=== PATIENT | female | born 1990 | race Caucasian/White ===

== ENCOUNTER 2017-12-01 07:09 | Emergency (ER) | payer MEDICAID ==
[~2017-12-01] VITALS: Ht 160 cm; Wt 72.7 kg
[~2017-12-01 07:09] MED LIST: CYCL-394 PO; MECL-111 PO; prenatal vitamins
[2017-12-01 07:15] VITALS: BP 124/68
[2017-12-01] MEDS ORDERED: DICL50TA8 PO (07:26)
[2017-12-01] MEDS ORDERED: CYCL-1 PO (07:26)
[2017-12-01] MEDS ORDERED: ketorolac trometh inj. 60 MG/2 ML VIAL IM ONE (07:30)
== END 2017-12-01 07:49 | disposition home or self-care (01) ==
LOC: ER 07:09
DX: M54.5 Low back pain (principal); G89.29 Other chronic pain; G43.909 Migraine, unspecified, not intractable, without status migrainosus; Z88.5 Allergy status to narcotic agent; Z88.8 Allergy status to other drugs, medicaments and biological substances; Z79.899 Other long term (current) drug therapy
CPT/HCPCS: 96372; 99283; J1885

== ENCOUNTER 2018-03-15 12:53 | Emergency (ER) | payer MEDICAID, OTHER ==
[~2018-03-15] VITALS: Ht 160 cm; Wt 75.0 kg
[~2018-03-15 12:53] MED LIST changes: +CYCL-1 PO; +DICL50TA8 PO
[2018-03-15 13:07] VITALS: BP 131/78
[2018-03-15] MEDS ORDERED: METH500T PO (13:25)
[2018-03-15] MEDS ORDERED: HYDR-568 PO (13:25)
[2018-03-15] MEDS ORDERED: ketorolac trometh inj. 60 MG/2 ML VIAL IM ONE (13:25)
== END 2018-03-15 13:45 | disposition home or self-care (01) ==
LOC: ER 12:53
DX: M54.42 Lumbago with sciatica, left side (principal); M62.830 Muscle spasm of back; G89.29 Other chronic pain; G43.909 Migraine, unspecified, not intractable, without status migrainosus; Z98.890 Other specified postprocedural states; Z88.6 Allergy status to analgesic agent
CPT/HCPCS: 96372; 99283; J1885

== ENCOUNTER 2018-05-19 12:51 | Emergency (ER) | payer OTHER ==
[~2018-05-19] VITALS: Ht 160 cm; Wt 70.8 kg
[~2018-05-19 12:51] MED LIST changes: +METH500T PO
[2018-05-19 13:11] VITALS: BP 122/77
[2018-05-19 13:44] LABS: ALANINE AMINOTRANSFERASE 19 U/L (12-78); ALBUMIN 3.9 G/DL (3.4-5.0); ALKALINE PHOSPHATASE 56 IU/L (46-116); ANION GAP 9 (8-16); ASPARTATE AMINO TRANSFERASE 11 U/L (10-37); BILIRUBIN,TOTAL 0.3 MG/DL (0.1-1.0); BLOOD UREA NITROGEN 15 MG/DL (7-18); BUN/CREATININE RATIO 17.9 (6.6-38.0); CHLORIDE 106 MMOL/L (99-107); CREATININE 0.84 MG/DL (0.40-0.90); GLUCOSE 83 MG/DL (70-104); POTASSIUM 3.6 MMOL/L (3.5-5.1); SODIUM 139 MMOL/L (135-145); TOTAL CARBON DIOXIDE 23.7 MMOL/L (24-32); TOTAL PROTEIN 7.7 G/DL (6.4-8.2); eGFR 81 ML/MIN
[2018-05-19 13:45] LABS: PROTHROMBIN TIME 10.3 SECONDS (9.0-12.0)
[2018-05-19 13:45] LABS: CLARITY,URINE SLIGHTLY CLOUDY (Clear); COLOR,URINE YELLOW (Yellow); GLUCOSE, URINE NEGATIVE (Neg); KETONES,URINE NEGATIVE (Neg); LEUKOCYTE ESTERASE ,URINE SMALL (Neg); NITRITES, URINE NEGATIVE (Neg); OCCULT BLOOD,URINE NEGATIVE (Neg); PH,URINE 5.5 (4.8-8.0); PROTEIN,URINE NEGATIVE (Neg); UROBILINOGEN,URINE 0.2 E.U/dL (0.2-1.0)
[2018-05-19 13:46] LABS: URINE HCG NEGATIVE (NEG)
[2018-05-19 13:48] LABS: BASOPHILS % (AUTO) 0.5 % (0-1); EOSINOPHILS % (AUTO) 0.5 % (0-6); HEMATOCRIT 41.8 % (35.0-45.0); HEMOGLOBIN 13.9 g/dl (12.0-16.0); LYMPHOCYTES # (AUTO) 1.8 X10'3 (1.1-4.8); LYMPHOCYTES % (AUTO) 23.9 % (21-51); MEAN CORPUSCULAR HEMOGLOBIN 30.4 PG (27.0-31.0); MEAN CORPUSCULAR HGB CONC 33.3 % (33.0-36.5); MEAN CORPUSCULAR VOLUME 91.4 FL (78-98); MEAN PLATELET VOLUME 9.6 FL (7.4-10.4); MONOCYTES # (AUTO) 0.5 X10'3 (0-0.9); MONOCYTES % (AUTO) 6.3 % (2-12); NEUTROPHILS # (AUTO) 5.3 X10'3 (1.8-7.7); NEUTROPHILS % (AUTO) 68.8 % (42-75); PLATELET COUNT 236 X10'3 (140-440); RED BLOOD COUNT 4.57 X10'6 (4.20-5.60); RED CELL DISTRIBUTION WIDTH 12.4 % (11.5-14.5); WHITE BLOOD COUNT 7.7 X10'3 (4.5-11.0)
[2018-05-19 13:52] LABS: UA COLLECTION TYPE CLN CATCH MIDSTREAM
[2018-05-19 13:54] LABS: BACTERIA,URINE 2+ /HPF (Neg); RBC,URINE 0-2 /HPF (0-2); SQUAMOUS EPITHELIAL CELL,UR MODERATE /LPF (FEW)
[2018-05-19] MEDS ORDERED: ondansetron 4mg rapidly disintigrating tab PO ONE (14:40)
[2018-05-19] MEDS ORDERED: famotidine 20mg tablet PO ONE (14:45)
[2018-05-19] MEDS ORDERED: BISA-155 PO (15:29)
== END 2018-05-19 16:04 | disposition home or self-care (01) ==
LOC: ER 12:51
DX: R10.32 Left lower quadrant pain (principal); G89.29 Other chronic pain; Z98.890 Other specified postprocedural states; Z88.5 Allergy status to narcotic agent; Z88.8 Allergy status to other drugs, medicaments and biological substances; Z79.899 Other long term (current) drug therapy
CPT/HCPCS: 36415; 76856; 80053; 81001; 81025; 85025; 85610; 87088; 99284

== ENCOUNTER 2018-07-15 07:40 | Emergency (ER) | payer MEDICAID ==
[~2018-07-15] VITALS: Ht 160 cm; Wt 72.7 kg
[~2018-07-15 07:40] MED LIST changes: +BISA-155 PO
[2018-07-15 07:58] VITALS: BP 124/79
[2018-07-15] MEDS ORDERED: dexamethasone sod phosphate 10mg/ml inj PO STA (08:25)
== END 2018-07-15 08:47 | disposition home or self-care (01) ==
LOC: ER 07:41
DX: J02.9 Acute pharyngitis, unspecified (principal); G89.29 Other chronic pain; H92.01 Otalgia, right ear; R11.0 Nausea; F17.200 Nicotine dependence, unspecified, uncomplicated; Z88.5 Allergy status to narcotic agent; Z79.899 Other long term (current) drug therapy; Z88.8 Allergy status to other drugs, medicaments and biological substances
CPT/HCPCS: 99282; J1100

== ENCOUNTER 2019-02-17 09:25 | Emergency (ER) | payer MEDICAID, OTHER ==
[~2019-02-17] VITALS: Ht 160 cm; Wt 68.0 kg
[2019-02-17 10:00] LABS: CLARITY,URINE CLOUDY (Clear); COLOR,URINE STRAW (Yellow); GLUCOSE, URINE NEGATIVE (Neg); KETONES,URINE NEGATIVE (Neg); LEUKOCYTE ESTERASE ,URINE LARGE (Neg); NITRITES, URINE NEGATIVE (Neg); OCCULT BLOOD,URINE NEGATIVE (Neg); PH,URINE 5.5 (4.8-8.0); PROTEIN,URINE NEGATIVE (Neg); UROBILINOGEN,URINE 0.2 E.U/dL (0.2-1.0)
[2019-02-17 10:02] LABS: URINE HCG NEGATIVE (NEG)
[2019-02-17 10:04] LABS: UA COLLECTION TYPE CLN CATCH MIDSTREAM
[2019-02-17 10:10] LABS: SQUAMOUS EPITHELIAL CELL,UR MANY /LPF (FEW)
[2019-02-17 10:10] LABS: BASOPHILS % (AUTO) 0.5 % (0-1); EOSINOPHILS % (AUTO) 0.9 % (0-6); HEMATOCRIT 43.6 % (35.0-45.0); LYMPHOCYTES # (AUTO) 1.3 X10'3 (1.1-4.8); LYMPHOCYTES % (AUTO) 23.7 % (21-51); MEAN CORPUSCULAR HEMOGLOBIN 32.1 PG (27.0-31.0); MEAN CORPUSCULAR HGB CONC 34.3 g/dL (33.0-36.5); MEAN CORPUSCULAR VOLUME 93.4 FL (78-98); MEAN PLATELET VOLUME 8.8 FL (7.4-10.4); MONOCYTES # (AUTO) 0.4 X10'3 (0-0.9); MONOCYTES % (AUTO) 7.1 % (2-12); NEUTROPHILS # (AUTO) 3.8 X10'3 (1.8-7.7); NEUTROPHILS % (AUTO) 67.8 % (42-75); PLATELET COUNT 223 X10'3 (140-440); RED BLOOD COUNT 4.66 X10'6 (4.20-5.60); RED CELL DISTRIBUTION WIDTH 12.2 % (11.5-14.5); WHITE BLOOD COUNT 5.7 X10'3 (4.5-11.0)
[2019-02-17 10:11] LABS: BACTERIA,URINE 2+ /HPF (Neg); RBC,URINE 0-2 /HPF (0-2); WBC,URINE 20-30 /HPF (0-4)
[2019-02-17 10:22] LABS: ALANINE AMINOTRANSFERASE 19 U/L (12-78); ALKALINE PHOSPHATASE 51 IU/L (46-116); ANION GAP 6 (8-16); ASPARTATE AMINO TRANSFERASE 8 U/L (10-37); BILIRUBIN,TOTAL 0.5 MG/DL (0.1-1.0); BLOOD UREA NITROGEN 11 MG/DL (7-18); BUN/CREATININE RATIO 14.9 (6.6-38.0); CALCIUM 9.4 MG/DL (8.5-10.1); CHLORIDE 109 MMOL/L (99-107); CREATININE 0.74 MG/DL (0.40-0.90); GLUCOSE 78 MG/DL (70-104); POTASSIUM 3.9 MMOL/L (3.5-5.1); SODIUM 141 MMOL/L (135-145); TOTAL CARBON DIOXIDE 25.8 MMOL/L (24-32); eGFR > 90 ML/MIN
[2019-02-17] MEDS ORDERED: HYDR-4383 PO (11:08)
[2019-02-17 11:24] VITALS: BP 104/64
[2019-02-17] MEDS ORDERED: SULF1TAB49 PO (11:33)
== END 2019-02-17 11:39 | disposition home or self-care (01) ==
LOC: ER 09:26
DX: R10.31 Right lower quadrant pain (principal); G43.909 Migraine, unspecified, not intractable, without status migrainosus; G89.29 Other chronic pain; Z98.890 Other specified postprocedural states; Z88.5 Allergy status to narcotic agent; Z88.6 Allergy status to analgesic agent; Z79.899 Other long term (current) drug therapy
CPT/HCPCS: 36415; 80053; 81001; 81025; 85025; 85610; 99283

== ENCOUNTER 2019-05-02 16:40 | Emergency (ER) | payer OTHER ==
[~2019-05-02] VITALS: Ht 160 cm; Wt 67.0 kg
[~2019-05-02 16:40] MED LIST changes: +HYDR-4383 PO
[2019-05-02 16:42] VITALS: BP 120/80
[2019-05-02] MEDS ORDERED: HYDR-4353 PO (17:09)
== END 2019-05-02 17:18 | disposition home or self-care (01) ==
LOC: ER 16:41
DX: M25.511 Pain in right shoulder (principal); G43.909 Migraine, unspecified, not intractable, without status migrainosus; G89.29 Other chronic pain; Z79.899 Other long term (current) drug therapy; Z88.6 Allergy status to analgesic agent; Z98.890 Other specified postprocedural states; V89.2XXA Person injured in unspecified motor-vehicle accident, traffic, initial encounter; Y93.89 Activity, other specified; Y92.89 Other specified places as the place of occurrence of the external cause; Y99.8 Other external cause status
CPT/HCPCS: 99283

== ENCOUNTER 2019-06-16 08:50 | Emergency (ER) | payer SELFPAY ==
[~2019-06-16] VITALS: Ht 160 cm; Wt 67.9 kg
[2019-06-16 08:51] VITALS: BP 127/78
[2019-06-16] MEDS ORDERED: ondansetron/PF 4mg/2ml inj IV ONE (09:15)
[2019-06-16] MEDS ORDERED: ketorolac tromethamine 15mg/ml inj. IV ONE (09:15)
[2019-06-16 09:41] LABS: BASOPHILS % (AUTO) 0.7 % (0-1); EOSINOPHILS % (AUTO) 0.9 % (0-6); HEMATOCRIT 42.9 % (35.0-45.0); HEMOGLOBIN 14.7 g/dl (12.0-16.0); LYMPHOCYTES # (AUTO) 1.2 X10'3 (1.1-4.8); LYMPHOCYTES % (AUTO) 23.7 % (21-51); MEAN CORPUSCULAR HEMOGLOBIN 32.4 PG (27.0-31.0); MEAN CORPUSCULAR HGB CONC 34.4 g/dL (33.0-36.5); MEAN CORPUSCULAR VOLUME 94.1 FL (78-98); MEAN PLATELET VOLUME 9.4 FL (7.4-10.4); MONOCYTES # (AUTO) 0.3 X10'3 (0-0.9); MONOCYTES % (AUTO) 6.9 % (2-12); NEUTROPHILS # (AUTO) 3.4 X10'3 (1.8-7.7); NEUTROPHILS % (AUTO) 67.8 % (42-75); PLATELET COUNT 204 X10'3 (140-440); RED BLOOD COUNT 4.56 X10'6 (4.20-5.60); RED CELL DISTRIBUTION WIDTH 12.3 % (11.5-14.5)
[2019-06-16 09:43] LABS: URINE HCG NEGATIVE (NEG)
[2019-06-16 09:44] LABS: CLARITY,URINE SLIGHTLY CLOUDY (Clear); COLOR,URINE YELLOW (Yellow); GLUCOSE, URINE NEGATIVE (Neg); KETONES,URINE NEGATIVE (Neg); LEUKOCYTE ESTERASE ,URINE SMALL (Neg); NITRITES, URINE NEGATIVE (Neg); OCCULT BLOOD,URINE NEGATIVE (Neg); PROTEIN,URINE NEGATIVE (Neg)
[2019-06-16 09:46] LABS: UA COLLECTION TYPE VOIDED
[2019-06-16 09:52] LABS: BACTERIA,URINE 2+ /HPF (Neg); MUCUS STRANDS MODERATE /LPF (Neg); RBC,URINE NONE SEEN /HPF (0-2); SQUAMOUS EPITHELIAL CELL,UR MANY /LPF (FEW)
[2019-06-16 10:02] LABS: ALANINE AMINOTRANSFERASE 28 U/L (12-78); ALBUMIN 4.3 G/DL (3.4-5.0); ALBUMIN/GLOBULIN RATIO 1.2 (1.1-1.5); ALKALINE PHOSPHATASE 57 IU/L (46-116); ANION GAP 6 (8-16); ASPARTATE AMINO TRANSFERASE 15 U/L (10-37); BILIRUBIN,TOTAL 0.6 MG/DL (0.1-1.0); BLOOD UREA NITROGEN 15 MG/DL (7-18); BUN/CREATININE RATIO 18.1 (6.6-38.0); CALCIUM 9.4 MG/DL (8.5-10.1); CHLORIDE 108 MMOL/L (99-107); CREATININE 0.83 MG/DL (0.40-0.90); GLUCOSE 91 MG/DL (70-104); SODIUM 142 MMOL/L (135-145); TOTAL CARBON DIOXIDE 27.8 MMOL/L (24-32); TOTAL PROTEIN 7.9 G/DL (6.4-8.2); eGFR 81 ML/MIN
[2019-06-16] MEDS ORDERED: ondansetron 4mg rapidly disintigrating tab PO ONE (10:15)
[2019-06-16] MEDS ORDERED: ketorolac trometh. 30mg/ml inj. IM ONE (10:15)
[2019-06-16] MEDS ORDERED: HYDR-3964 PO (11:05)
== END 2019-06-16 11:18 | disposition home or self-care (01) ==
LOC: ER 08:51
DX: N83.201 Unspecified ovarian cyst, right side (principal); R10.31 Right lower quadrant pain; R42 Dizziness and giddiness; G43.909 Migraine, unspecified, not intractable, without status migrainosus; G89.29 Other chronic pain; Z98.890 Other specified postprocedural states; Z88.5 Allergy status to narcotic agent; Z88.6 Allergy status to analgesic agent; Z79.899 Other long term (current) drug therapy
CPT/HCPCS: 36415; 76705; 76856; 80053; 81001; 81025; 85025; 96372; 99284; J1885

== ENCOUNTER 2019-07-24 08:48 | Emergency (ER) | payer MEDICAID, OTHER ==
[~2019-07-24] VITALS: Ht 160 cm; Wt 65.9 kg
[~2019-07-24 08:48] MED LIST changes: -MECL-111 PO; +MECL-159 PO
[2019-07-24 08:55] VITALS: BP 131/87
[2019-07-24] MEDS ORDERED: ondansetron 4mg rapidly disintigrating tab PO ONE (09:10)
[2019-07-24] MEDS ORDERED: acetaminophen 325mg tablet PO ONE (09:10)
[2019-07-24 09:38] LABS: HEMOGLOBIN 15.9 g/dl (12.0-16.0); MEAN PLATELET VOLUME 9.5 FL (7.4-10.4); RED CELL DISTRIBUTION WIDTH 12.3 % (11.5-14.5); WHITE BLOOD COUNT 5.3 X10'3 (4.5-11.0)
[2019-07-24 09:39] LABS: BASOPHILS % (AUTO) 0.6 % (0-1); EOSINOPHILS # (AUTO) 0.1 X10'3 (0-0.9); LYMPHOCYTES # (AUTO) 1.4 X10'3 (1.1-4.8); LYMPHOCYTES % (AUTO) 26.7 % (21-51); MEAN CORPUSCULAR HEMOGLOBIN 32.4 PG (27.0-31.0); MEAN CORPUSCULAR HGB CONC 34.5 g/dL (33.0-36.5); MEAN CORPUSCULAR VOLUME 93.8 FL (78-98); MONOCYTES # (AUTO) 0.4 X10'3 (0-0.9); MONOCYTES % (AUTO) 6.6 % (2-12); NEUTROPHILS # (AUTO) 3.5 X10'3 (1.8-7.7); NEUTROPHILS % (AUTO) 65.1 % (42-75); PLATELET COUNT 239 X10'3 (140-440); RED BLOOD COUNT 4.91 X10'6 (4.20-5.60)
[2019-07-24 09:40] LABS: ALANINE AMINOTRANSFERASE 20 U/L (12-78); ALBUMIN 4.5 G/DL (3.4-5.0); ALBUMIN/GLOBULIN RATIO 1.1 (1.1-1.5); ALKALINE PHOSPHATASE 60 IU/L (46-116); ANION GAP 7 (8-16); ASPARTATE AMINO TRANSFERASE 17 U/L (10-37); BILIRUBIN,TOTAL 0.6 MG/DL (0.1-1.0); BLOOD UREA NITROGEN 9 MG/DL (7-18); CHLORIDE 107 MMOL/L (99-107); CREATININE 0.75 MG/DL (0.40-0.90); GLUCOSE 96 MG/DL (70-104); LIPASE 193 U/L (73-393); POTASSIUM 3.9 MMOL/L (3.5-5.1); SODIUM 141 MMOL/L (135-145); TOTAL CARBON DIOXIDE 27.2 MMOL/L (24-32); TOTAL PROTEIN 8.7 G/DL (6.4-8.2); eGFR > 90 ML/MIN
--- NOTE | 2019-07-24 09:47 | NUR ---
ADMIN MEDICATION ORDERED. PT GIVEN URINE CUP AND AMB TO BATHROOM TO COLLECT SPECIMEN.
[2019-07-24 10:05] LABS: CLARITY,URINE CLEAR (Clear); COLOR,URINE YELLOW (Yellow); GLUCOSE, URINE NEGATIVE (Neg); KETONES,URINE NEGATIVE (Neg); LEUKOCYTE ESTERASE ,URINE TRACE (Neg); NITRITES, URINE NEGATIVE (Neg); OCCULT BLOOD,URINE NEGATIVE (Neg); PROTEIN,URINE NEGATIVE (Neg); UA COLLECTION TYPE CLN CATCH MIDSTREAM; UROBILINOGEN,URINE 0.2 E.U/dL (0.2-1.0)
[2019-07-24 10:07] LABS: URINE HCG NEGATIVE (NEG)
[2019-07-24 10:21] LABS: SQUAMOUS EPITHELIAL CELL,UR MANY /LPF (FEW)
[2019-07-24 10:23] LABS: BACTERIA,URINE FEW /HPF (Neg); RBC,URINE 0-2 /HPF (0-2); WBC,URINE 0-4 /HPF (0-4)
[2019-07-24] MEDS ORDERED: famotidine 20mg tablet PO ONE (10:25)
[2019-07-24] MEDS ORDERED: HYDR-4383 PO (10:26)
[2019-07-24] MEDS ORDERED: FAMO-128 PO (10:26)
[2019-07-24] MEDS ORDERED: PROC-8 PO (10:26)
== END 2019-07-24 10:36 | disposition home or self-care (01) ==
LOC: ER 08:48
DX: R10.31 Right lower quadrant pain (principal); G43.909 Migraine, unspecified, not intractable, without status migrainosus; G89.29 Other chronic pain; Z88.5 Allergy status to narcotic agent; Z88.8 Allergy status to other drugs, medicaments and biological substances; Z79.899 Other long term (current) drug therapy; Z72.89 Other problems related to lifestyle
CPT/HCPCS: 36415; 80053; 81001; 81025; 83690; 85025; 99283

== ENCOUNTER 2019-08-03 11:57 | Emergency (ER) | payer MEDICAID, OTHER ==
[~2019-08-03] VITALS: Ht 160 cm; Wt 67.7 kg
[~2019-08-03 11:57] MED LIST changes: +FAMO-128 PO; +PROC-8 PO
[2019-08-03 12:06] VITALS: BP 125/85
[2019-08-03] MEDS ORDERED: IBUP-1984 PO (12:34)
[2019-08-03] MEDS ORDERED: PENI250T2 PO (12:34)
== END 2019-08-03 13:04 | disposition home or self-care (01) ==
LOC: ER 11:58
DX: K08.89 Other specified disorders of teeth and supporting structures (principal); G89.29 Other chronic pain; Z98.890 Other specified postprocedural states; Z88.5 Allergy status to narcotic agent; Z88.6 Allergy status to analgesic agent; Z79.899 Other long term (current) drug therapy
CPT/HCPCS: 99283

== ENCOUNTER 2020-02-07 10:11 | Emergency (ER) | payer MEDICAID ==
[~2020-02-07] VITALS: Ht 160 cm; Wt 69.0 kg
[2020-02-07 10:24] VITALS: BP 118/80
[2020-02-07] MEDS ORDERED: PENI500T2 PO (11:27)
== END 2020-02-07 11:35 | disposition home or self-care (01) ==
LOC: ER 10:11
DX: K04.7 Periapical abscess without sinus (principal); R68.84 Jaw pain; G43.909 Migraine, unspecified, not intractable, without status migrainosus; G89.29 Other chronic pain; Z98.890 Other specified postprocedural states; Z72.89 Other problems related to lifestyle; Z88.5 Allergy status to narcotic agent; Z88.6 Allergy status to analgesic agent; Z79.899 Other long term (current) drug therapy; Z79.2 Long term (current) use of antibiotics
CPT/HCPCS: 99283

== ENCOUNTER 2020-03-21 10:50 | Emergency (ER) | payer MEDICAID, OTHER ==
[~2020-03-21] VITALS: Ht 160 cm; Wt 72.7 kg
[2020-03-21 12:53] LABS: BASOPHILS % (AUTO) 0.5 % (0-1); EOSINOPHILS % (AUTO) 0.3 % (0-6); HEMATOCRIT 44.6 % (35.0-45.0); HEMOGLOBIN 15.3 g/dl (12.0-16.0); LYMPHOCYTES # (AUTO) 1.3 X10'3 (1.1-4.8); LYMPHOCYTES % (AUTO) 16.6 % (21-51); MEAN CORPUSCULAR HEMOGLOBIN 32.1 PG (27.0-31.0); MEAN CORPUSCULAR HGB CONC 34.2 g/dL (33.0-36.5); MEAN CORPUSCULAR VOLUME 93.8 FL (78-98); MEAN PLATELET VOLUME 9.7 FL (7.4-10.4); MONOCYTES # (AUTO) 0.4 X10'3 (0-0.9); MONOCYTES % (AUTO) 4.5 % (2-12); NEUTROPHILS # (AUTO) 6.2 X10'3 (1.8-7.7); NEUTROPHILS % (AUTO) 78.1 % (42-75); PLATELET COUNT 256 X10'3 (140-440); RED BLOOD COUNT 4.75 X10'6 (4.20-5.60); RED CELL DISTRIBUTION WIDTH 12.2 % (11.5-14.5); WHITE BLOOD COUNT 7.9 X10'3 (4.5-11.0)
[2020-03-21 13:05] LABS: ALANINE AMINOTRANSFERASE 19 U/L (12-78); ALKALINE PHOSPHATASE 55 IU/L (46-116); ANION GAP 9 (8-16); ASPARTATE AMINO TRANSFERASE 13 U/L (10-37); BILIRUBIN,TOTAL 0.3 MG/DL (0.1-1.0); BLOOD UREA NITROGEN 13 MG/DL (7-18); BUN/CREATININE RATIO 17.6 (6.6-38.0); CALCIUM 9.5 MG/DL (8.5-10.1); CHLORIDE 109 MMOL/L (99-107); CREATININE 0.74 MG/DL (0.40-0.90); GLUCOSE 91 MG/DL (70-104); POTASSIUM 3.8 MMOL/L (3.5-5.1); SODIUM 141 MMOL/L (135-145); TOTAL PROTEIN 8.1 G/DL (6.4-8.2); eGFR > 90 ML/MIN
--- NOTE | 2020-03-21 13:51 | NUR ---
Pt tolerated PO intake of food and drink. Pt is awaiting discarge paperwork and her spouse will be driving her home.
[2020-03-21 13:58] VITALS: BP 104/60
== END 2020-03-21 14:00 | disposition home or self-care (01) ==
LOC: ER 10:51
DX: R55 Syncope and collapse (principal); R05 Cough; R53.1 Weakness; R50.9 Fever, unspecified; G43.909 Migraine, unspecified, not intractable, without status migrainosus; G89.29 Other chronic pain; F17.200 Nicotine dependence, unspecified, uncomplicated; Z98.890 Other specified postprocedural states; Z72.89 Other problems related to lifestyle; Z88.5 Allergy status to narcotic agent; Z79.899 Other long term (current) drug therapy
CPT/HCPCS: 36415; 80053; 85025; 93005; 99284

== ENCOUNTER 2021-01-08 09:40 | Emergency (ER) | payer SELFPAY | END 2021-01-08 17:55 | disposition left against medical advice (07) | LOC: ER 09:41 | DX: R68.84 Jaw pain (principal); Z53.21 Procedure and treatment not carried out due to patient leaving prior to being seen by health care provider ==

== ENCOUNTER 2022-01-11 12:44 | Emergency (ER) | payer SELFPAY ==
[~2022-01-11] VITALS: Ht 160 cm; Wt 72.3 kg
[2022-01-11 12:58] VITALS: BP 135/87
[2022-01-11] MEDS ORDERED: proparacaine 0.5% ophthalmic drops 15ml EACHEYE ONE (13:20)
== END 2022-01-11 14:17 | disposition home or self-care (01) ==
LOC: ER 12:45
DX: H57.11 Ocular pain, right eye (principal); G43.909 Migraine, unspecified, not intractable, without status migrainosus; G89.29 Other chronic pain; M54.50 Low back pain, unspecified; Z88.5 Allergy status to narcotic agent; Z88.6 Allergy status to analgesic agent; Z98.890 Other specified postprocedural states
CPT/HCPCS: 99282

== ENCOUNTER 2022-07-06 14:01 | Emergency (ER) | payer BC ==
[~2022-07-06] VITALS: Ht 160 cm; Wt 72.0 kg
[2022-07-06 14:29] LABS: BASOPHILS % (AUTO) 0.5 % (0-1); EOSINOPHILS % (AUTO) 0.4 % (0-6); HEMATOCRIT 41.9 % (35.0-45.0); HEMOGLOBIN 14.1 g/dl (12.0-16.0); LYMPHOCYTES # (AUTO) 2.2 X10'3 (1.1-4.8); LYMPHOCYTES % (AUTO) 28.6 % (21-51); MEAN CORPUSCULAR HEMOGLOBIN 31.4 PG (27.0-31.0); MEAN CORPUSCULAR HGB CONC 33.6 g/dL (33.0-36.5); MEAN CORPUSCULAR VOLUME 93.6 FL (78-98); MONOCYTES # (AUTO) 0.6 X10'3 (0-0.9); MONOCYTES % (AUTO) 7.4 % (2-12); NEUTROPHILS # (AUTO) 4.8 X10'3 (1.8-7.7); NEUTROPHILS % (AUTO) 63.1 % (42-75); PLATELET COUNT 243 X10'3 (140-440); RED BLOOD COUNT 4.48 X10'6 (4.20-5.60); RED CELL DISTRIBUTION WIDTH 12.2 % (11.5-14.5); WHITE BLOOD COUNT 7.7 X10'3 (4.5-11.0)
[2022-07-06 14:42] LABS: ALANINE AMINOTRANSFERASE 20 U/L (12-78); ALBUMIN 4.3 G/DL (3.4-5.0); ALBUMIN/GLOBULIN RATIO 1.1 (1.1-1.5); ALKALINE PHOSPHATASE 56 IU/L (46-116); ANION GAP 6 (8-16); ASPARTATE AMINO TRANSFERASE 21 U/L (10-37); BILIRUBIN,TOTAL 0.5 MG/DL (0.1-1.0); BLOOD UREA NITROGEN 14 MG/DL (7-18); BUN/CREATININE RATIO 15.7 (6.6-38.0); CALCIUM 9.2 MG/DL (8.5-10.1); CHLORIDE 103 MMOL/L (99-107); CREATININE 0.89 MG/DL (0.40-0.90); GLUCOSE 92 MG/DL (70-104); LIPASE 187 U/L (73-393); POTASSIUM 3.7 MMOL/L (3.5-5.1); SODIUM 136 MMOL/L (135-145); TOTAL CARBON DIOXIDE 26.8 MMOL/L (24-32); TOTAL PROTEIN 8.3 G/DL (6.4-8.2); eGFR 74 ML/MIN
[2022-07-06 14:43] LABS: CLARITY,URINE SLIGHTLY CLOUDY (Clear); COLOR,URINE STRAW (Yellow); GLUCOSE, URINE NEGATIVE (Neg); KETONES,URINE NEGATIVE (Neg); LEUKOCYTE ESTERASE ,URINE MODERATE (Neg); NITRITES, URINE NEGATIVE (Neg); OCCULT BLOOD,URINE NEGATIVE (Neg); PH,URINE 5.5 (4.8-8.0); PROTEIN,URINE NEGATIVE (Neg); UROBILINOGEN,URINE 0.2 E.U/dL (0.2-1.0)
--- NOTE | 2022-07-06 14:43 | NUR ---
I AGREE WITH THE GENERAL ASSESSMENT PER Olivia ARCHIBALD LVN.
[2022-07-06 14:45] LABS: UA COLLECTION TYPE CLN CATCH MIDSTREAM; URINE HCG NEGATIVE (NEG)
[2022-07-06 14:54] LABS: BACTERIA,URINE 2+ /HPF (Neg); MUCUS STRANDS NONE SEEN /LPF (Neg); RBC,URINE NONE SEEN /HPF (0-2); SQUAMOUS EPITHELIAL CELL,UR MODERATE /LPF (FEW); TRANSITIONAL EPI CELLS,URINE FEW /HPF
[2022-07-06 17:59] VITALS: BP 133/97
[2022-07-06] MEDS ORDERED: HYDROcodone/acetaminophen 5mg/325mg tablet PO ONE (18:05)
[2022-07-06] MEDS ORDERED: SULF1TAB49 PO (18:09)
[2022-07-06] MEDS ORDERED: HYDR-3965 PO (18:09)
[2022-07-06] MEDS ORDERED: sulfamethoxazole/trimethoprim DS (800/160mg) tablet PO ONE (18:10)
== END 2022-07-06 18:51 | disposition home or self-care (01) ==
LOC: ER 14:01
DX: N39.0 Urinary tract infection, site not specified (principal); R10.31 Right lower quadrant pain; G43.909 Migraine, unspecified, not intractable, without status migrainosus; G89.29 Other chronic pain; Z72.89 Other problems related to lifestyle; Z98.890 Other specified postprocedural states; Z88.5 Allergy status to narcotic agent; Z88.6 Allergy status to analgesic agent; Z88.8 Allergy status to other drugs, medicaments and biological substances; Z79.2 Long term (current) use of antibiotics; Z79.899 Other long term (current) drug therapy
CPT/HCPCS: 36415; 76856; 80053; 81001; 81025; 83690; 85025; 87088; 93976; 99284

== ENCOUNTER 2022-09-26 11:03 | Emergency (ER) | payer BC ==
[~2022-09-26] VITALS: Ht 160 cm; Wt 69.0 kg
[~2022-09-26 11:03] MED LIST changes: +HYDR-3965 PO
[2022-09-26 11:08] VITALS: BP 119/74
[2022-09-26] MEDS ORDERED: FLUT16SP11 BOTHNARES (11:28)
== END 2022-09-26 11:56 | disposition home or self-care (01) ==
LOC: ER 11:05
DX: T59.811A Toxic effect of smoke, accidental (unintentional), initial encounter (principal); Y92.89 Other specified places as the place of occurrence of the external cause; G43.909 Migraine, unspecified, not intractable, without status migrainosus; G89.29 Other chronic pain; M54.9 Dorsalgia, unspecified; Z98.890 Other specified postprocedural states; Z88.5 Allergy status to narcotic agent; Z88.6 Allergy status to analgesic agent; Z79.899 Other long term (current) drug therapy
CPT/HCPCS: 99283

== ENCOUNTER 2023-04-08 08:03 | Emergency (ER) | payer BC ==
[~2023-04-08] VITALS: Ht 160 cm; Wt 72.7 kg
[~2023-04-08 08:03] MED LIST changes: +FLUT16SP11 BOTHNARES; -MECL-159 PO; +MECL-302 PO
[2023-04-08 08:22] VITALS: BP 112/68; PULSE 65; RESP 18; TEMP 97.7; O2SAT 100
--- NOTE | 2023-04-08 08:38 | NUR ---
pt here for nausea vomiting and diarrhea pt states still having nausea and vomiting and pt states does not think she is and family was sick, pt states shooting pains in vaginal area. Pt states inconsitent but extreme pains at times. XPLVN
[2023-04-08 09:01] LABS: URINE HCG NEGATIVE (NEG)
[2023-04-08 09:03] LABS: BILIRUBIN,URINE NEGATIVE (Neg); CLARITY,URINE CLEAR (Clear); COLOR,URINE STRAW (Yellow); GLUCOSE, URINE NEGATIVE (Neg); KETONES,URINE NEGATIVE (Neg); LEUKOCYTE ESTERASE ,URINE NEGATIVE (Neg); NITRITES, URINE NEGATIVE (Neg); OCCULT BLOOD,URINE NEGATIVE (Neg); PROTEIN,URINE NEGATIVE (Neg); UROBILINOGEN,URINE 0.2 E.U/dL (0.2-1.0)
[2023-04-08 09:07] LABS: UA COLLECTION TYPE CLN CATCH MIDSTREAM
[2023-04-08 09:56] LABS: BASOPHILS % (AUTO) 0.4 % (0-1); EOSINOPHILS % (AUTO) 0.5 % (0-6); HEMOGLOBIN 14.7 g/dl (12.0-16.0); LYMPHOCYTES # (AUTO) 1.7 X10'3 (1.1-4.8); LYMPHOCYTES % (AUTO) 28.2 % (21-51); MEAN CORPUSCULAR HEMOGLOBIN 32.2 PG (27.0-31.0); MEAN CORPUSCULAR HGB CONC 34.1 g/dL (33.0-36.5); MEAN CORPUSCULAR VOLUME 94.4 FL (78-98); MEAN PLATELET VOLUME 9.2 FL (7.4-10.4); MONOCYTES # (AUTO) 0.4 X10'3 (0-0.9); MONOCYTES % (AUTO) 6.7 % (2-12); NEUTROPHILS # (AUTO) 3.8 X10'3 (1.8-7.7); NEUTROPHILS % (AUTO) 64.2 % (42-75); PLATELET COUNT 195 X10'3 (140-440); RED BLOOD COUNT 4.56 X10'6 (4.20-5.60); RED CELL DISTRIBUTION WIDTH 12.7 % (11.5-14.5); WHITE BLOOD COUNT 5.9 X10'3 (4.5-11.0)
[2023-04-08] MEDS ORDERED: morphine 4 MG/ML inj SYRINge IV STA (10:11)
[2023-04-08 10:13] LABS: ALANINE AMINOTRANSFERASE 20 U/L (12-78); ALBUMIN 3.7 G/DL (3.4-5.0); ALKALINE PHOSPHATASE 53 IU/L (46-116); ANION GAP 5 (8-16); ASPARTATE AMINO TRANSFERASE 13 U/L (10-37); BILIRUBIN,TOTAL 0.3 MG/DL (0.1-1.0); BLOOD UREA NITROGEN 7 MG/DL (7-18); BUN/CREATININE RATIO 10.6 (10.0-20.0); CHLORIDE 106 MMOL/L (99-107); CREATININE 0.66 MG/DL (0.40-0.90); GLUCOSE 92 MG/DL (70-104); POTASSIUM 4.1 MMOL/L (3.5-5.1); SODIUM 138 MMOL/L (135-145); TOTAL CARBON DIOXIDE 26.9 MMOL/L (24-32); TOTAL PROTEIN 7.5 G/DL (6.4-8.2); eCRCL 100 ML/MIN; eGFR > 90 ML/MIN
[2023-04-08] MEDS ORDERED: ondansetron/PF 4mg/2ml inj IV ONE (10:15)
[2023-04-08 10:22] LABS: BETA HCG,QUANTITATIVE < 1.0 mIU/ml; LIPASE 49 U/L (16-77)
[2023-04-08] MEDS ORDERED: ketorolac trometh. 30mg/ml inj. IM ONE (10:30)
== END 2023-04-08 10:42 | disposition left against medical advice (07) ==
LOC: ER 08:04
DX: R10.2 Pelvic and perineal pain (principal); G43.909 Migraine, unspecified, not intractable, without status migrainosus; G89.29 Other chronic pain; Z88.5 Allergy status to narcotic agent; Z79.899 Other long term (current) drug therapy
CPT/HCPCS: 36415; 80053; 81003; 81025; 83690; 84702; 85025; 99283

== ENCOUNTER 2024-12-26 09:43 | Emergency (ER) | payer BC, SELFPAY ==
[~2024-12-26] VITALS: Ht 160 cm; Wt 66.8 kg
[2024-12-26 09:58] VITALS: TEMP 98.4
--- NOTE | 2024-12-26 10:43 | Physician Documentation ---
History of Present Illness ~ Chief Complaint: Syncope Stated Complaint: SYNCOPE Time Seen by MD: 10:22 OK to notify your PCP?: Yes Primary Medical Doctor: kalani MCQUEEN 34-year-old female presenting with a syncopal episode. Patient reports that earlier today she suddenly had a racing heartbeat and then passed out. She does not know how long she was out for but woke up feeling groggy and confused. She reports that this has happened to her in the past as well most recently one week ago. Last week she did present to the [facility] emergency department and had a workup done there and was discharged. She was told that she may have vertigo but that there was nothing else they could do. She reports that this has also happened a couple of years ago and she did see a industrial specialist in the past. Patient states that when this happens her heart starts racing and sometimes she will also urinate herself. She also feel his some hot flashes that will occur before she passes out. She denies any chest pain, shortness of breath, fever, chills or any other associated symptoms. Medication Reconciliation Allergies: Coded Allergies: codeine (Unverified Allergy, Unknown, hives, 12/26/24) naproxen (Unverified Adverse Reaction, Unknown, 12/26/24) reports causes nausea and vomitting, states she is able to take Ibuprofen tramadol (Unverified Adverse Reaction, Unknown, 12/26/24) Pt reports causes N/V Scheduled Bisacodyl (Dulcolax), 4 TAB PO ONCE Cyclobenzaprine HCl (Cyclobenzaprine HCl), 10 MG PO TID PRN MUSCLE SPASM Diclofenac Sodium (Diclofenac Sodium), 1 TABLET PO BID Famotidine (Pepcid), 1 TAB PO Q12H Fluticasone Propionate (Fluticasone Propionate), 2 SPRAYS BOTHNARES DAILY Hydrocodone/Acetaminophen ([place] 5-325 Tablet), 1 TAB PO Q12H PRN Hydrocodone/Acetaminophen ([place] 5-325 Tablet), 1 TAB PO TID PRN Meclizine HCl (Meclizine HCl), 1 TAB PO TID PRN Methocarbamol (Robaxin), 1 TAB PO Q8H Prochlorperazine Maleate (Compazine), 1 TAB PO Q6H Scheduled PRN Cyclobenzaprine* (Cyclobenzaprine*), 1 TABLET PO Q8H PRN for muscle spasms Hydrocodone Bit/Acetaminophen 5/325 MG ([place] 5/325 MG), 1-2 TAB PO Q4-6 hours PRN for pain Miscellaneous Medications [ vitamins], (Reported) Past Medical History Past Medical History: Headache, Migraine, *RENAL/*, Chronic Back Pain Past Surgical History: Alcohol Use: Occasionally Drug Use: none Lives with: Spouse Lives In: Home Occupation: employed Review of Systems All Other Systems at this time: Reviewed and Negative Physical Exam Vital Signs: Temperature: 98.4, Source: Temporal, Heart Rate: 61, Respiratory Rate: 16, BP: 108/81, Pulse Oximetry: 99, Weight: 66.820 Oxygen Flow Rate: 0 Physical Exam I have reviewed the triage vitals. CONST: Well developed and well nourished. In no acute distress HENT: Head Atraumatic EYES: Pupils are equal, round and reactive to light. Normal conjunctiva NECK: Normal range of motion. Supple. CARDIO: Normal rate and regular rhythm. No murmurs, rubs, or gallops. S1, S2. PULM/CHEST: No respiratory distress. Lungs clear to auscultation. No wheeze ABD: Soft and nontender. Nondistended. Bowel sounds normal. No guarding. : Exam deferred MSK: No edema. No deformity. NEURO: Alert and oriented to person, place and time. Moving all extremities SKIN: Warm and dry. PSYCH: Normal mood and affect. Good eye contact. Progress Results/Orders Results/Orders Orders - JASON STEWART MD Chest,Single View (12/26/24 10:37) Vl Carotid (12/26/24 ) Completed Orders - JASON STEWART MD Electrocardiogram (12/26/24 10:37) Cbc/Diff (12/26/24 10:37) CK (12/26/24 10:37) CKMB (12/26/24 10:37) Urinalysis, Cult If Indicated (12/26/24 10:37) Chest,Single View (12/26/24 10:37) PBNP (12/26/24 10:37) MG (12/26/24 10:37) TSH (12/26/24 10:37) Free T4 (12/26/24 10:37) CMP (12/26/24 10:37) Hs Troponin I W Calculations (12/26/24 10:37) Hs Troponin I W Calculations (12/26/24 12:37) Hcg, Ur Ql (12/26/24 10:37) Normal Saline 1000ml (0.9% Sodium Chlori (12/26/24 10:40) Vl Carotid (12/26/24 ) Medications Received in ER Medications (Trade) Dose Ordered Sig/Kaushik Route PRN Reason Start Time Stop Time Status Last Admin Dose Admin Sodium Chloride 1,000 ml @ 1,000 mls/hr ONCE ONCE IV 12/26/24 10:40 12/26/24 11:39 DC 12/26/24 11:09 1,000 MLS/HR Vital Signs 12/26/24 12/26/24 12/26/24 12/26/24 09:58 11:11 11:11 11:30 Temp 98.4 Pulse 61 55 52 Resp 16 21 14 B/P (MAP) 108/81 116/68 (84) 108/64 (79) Pulse Ox 99 98 100 O2 Flow Rate 0 0 12/26/24 12/26/24 12/26/24 12/26/24 11:45 12:00 12:15 14:39 Pulse 51 53 53 52 Resp 16 16 13 16 B/P (MAP) 111/69 (83) 106/70 (82) 99/62 (74) 102/64 Pulse Ox 100 100 99 98 Laboratory Tests Test 12/26/24 10:48 12/26/24 12:51 12/26/24 13:06 White Blood Count 7.9 Red Blood Count 4.50 Hemoglobin 14.0 Hematocrit 41.8 Mean Corpuscular Volume 92.9 Mean Corpuscular Hemoglobin 31.1 H Mean Corpuscular Hemoglobin Concent 33.5 Red Cell Distribution Width 12.4 Platelet Count 228 Mean Platelet Volume 9.2 Neutrophils (%) (Auto) 76.3 H Lymphocytes (%) (Auto) 16.6 L Monocytes (%) (Auto) 6.4 Eosinophils (%) (Auto) 0.3 Basophils (%) (Auto) 0.4 Neutrophils # (Auto) 6.0 Lymphocytes # (Auto) 1.3 Monocytes # (Auto) 0.5 Eosinophils # (Auto) 0.0 Basophils # (Auto) 0.0 CBC Comment Sodium Level 139 Potassium Level 3.8 Chloride Level 107 Carbon Dioxide Level 24.1 Anion Gap 8 Blood Urea Nitrogen 24 H Creatinine 0.48 Estimated GFR/1.73 m2 > 90 BUN/Creatinine Ratio 50.0 H Glucose Level 83 Calcium Level 8.8 Magnesium Level 2.0 Total Bilirubin 0.3 Aspartate Amino Transf (AST/SGOT) 14 Alanine Aminotransferase (ALT/SGPT) 18 Alkaline Phosphatase 52 Total Creatine Kinase 59 Creatine Kinase MB 0.6 Creatine Kinase MB Relative Index Troponin I High Sensitivity 13 12 Pro-B-Type Natriuretic Peptide 90 Total Protein 7.1 Albumin 3.5 Globulin 3.6 Albumin/Globulin Ratio 1.0 L Thyroid Stimulating Hormone (TSH) 0.92 Free Thyroxine 0.85 Chemistry Comments Urine Specimen Description Voided Urine Color Yellow Urine Clarity Clear Urine pH 6.0 Urine Specific [place] 1.010 Urine Protein Negative Urine Glucose (UA) Negative Urine Ketones Negative Urine Occult Blood Negative Urine Nitrite Negative Urine Bilirubin Negative Urine Urobilinogen 0.2 Urine Leukocyte Esterase Negative Urine Culture Indicated Not ind Volume Urine Centrifuged 10 ml Urine HCG, Qualitative Negative Urine Comment Troponin I High Sens Percent Delta 7 Troponin I Hi Sens Absolute Change -1 EKG/XRAY/CT/US/VASC/MRI Chest X-Ray : Additional Comments CHEST RADIOGRAPH Indication: syncope Technique: Single frontal view of the chest was obtained COMPARISON: None FINDINGS: Lines and Tubes: None Lungs: Clear Pleura: No effusion. No pneumothorax. Cardiomediastinal contours: Unremarkable Bones: Unremarkable IMPRESSION: No acute disease. Vascular : Impression REASON FOR EXAM: Dizziness A Carotid Duplex Study was performed. INDICATION: Dizziness TECHNIQUE: Marquis scale, color doppler imaging and spectral analysis were performed. FINDINGS: On marquis scale and color imaging there is plaquing seen in the right carotid bulb and proximal right internal carotid artery. There is also minimal plaquing in the proximal left external carotid artery Velocities are as follows: (measured in cm/S): Right CCA 107 Left CCA 126 Right ICA 107 Left ICA 90 Right ICA/CCA 1.18 Left ICA/CCA 1.27 Flow in the vertebral arteries is antegrade. IMPRESSION: 1. No hemodynamically significant stenosis based on NASCET criteria 1. There is some calcified plaque seen in the right carotid bulb and proximal right internal carotid artery. Medical Decision Making Additional Information 34-year-old female presenting with intermittent dizziness. The pattern of her symptoms fit the diagnosis of possible orthostatic hypotension versus postural orthostatic tachycardia syndrome versus arrhythmia amongst other etiologies. Patient's lab workup is completely normal here. There is also the possibility of benign positional vertigo given the pattern in which they occur. I did not do a head CT here today given that she had one a week ago. I did however do carotid arterial ultrasounds which were for the most part unremarkable aside from some minimal plaque seen in the right carotid artery. There is however no significant stenosis and flow is good bilaterally. I advised the patient that she likely needs follow up with a industrial specialist for further evaluation and outpatient monitoring of her heart rate with a Holter monitor. Additionally the some of this may be hormonal and advise her that she needs to follow up with the primary care physician. At this point in time the patient's symptoms are for the most part resolved. She is normal as far as her vital signs. She looks well and nontoxic. She is stable and safe for discharge home. I advised her to drink plenty of fluids and stay active as well as eat a healthy balanced diet as she has been doing. Follow up closely with the aforementioned physicians. Return to the ED immediately with any acutely worsening symptoms. Departure Disposition: 01 HOME / SELF CARE / HOMELESS Impression: Primary Impression: Dizziness Additional Impression: Orthostatic hypotension Discharge Instructions: Dizziness, Orthostatic Hypotension Additional Instructions: Please ensure that you are hydrating adequately and drink at least 3-4 L of water per day. Continue your healthy lifestyle including a healthy balanced diet and exercise. Her lab workup was unremarkable here in the ED today. However you should follow up with a primary care physician and potentially a industrial specialist and a leasing sales consultant for further evaluation of your symptoms. Please return to the ED with any acutely worsening symptoms. Referrals: NO PRIMARY CARE PROVIDER (PCP) Signature Scribe Signature: 1 Attestation: 1 JSAON STEWART MD Dec 26, 2024 10:43
--- NOTE | 2024-12-26 10:49 | ELECTROCARDIOGRAPH REPORT ---
[facility] Test Date: 2024-12-26 Test Time: 10:46:56 Pat Name: CLEMENCIA HUANG Department: [facility]- Patient ID: [facility]-[id number] Room: Gender: F Loin Trimmer: : 1990 Requested By: JASON STEWART Order Number: [id number] Reading MD: Dr. Marco Christopher Measurements Intervals [place] Rate: 53 P: 64 FL: 113 QRS: 61 QRSD: 81 T: 56 QT: 406 QTc: 382 Interpretive Statements Sinus bradycardia Borderline short [place] interval Low voltage, precordial leads Probable anteroseptal infarct, old Electronically Signed On 01-04-2025 20:10:[address] Marco Christopher Please click the below link to view image of tracing.
[2024-12-26 10:57] LABS: MEAN PLATELET VOLUME 9.2 FL (7.4-10.4); RED CELL DISTRIBUTION WIDTH 12.4 % (11.5-14.5)
[2024-12-26] MEDS: normal saline 1000ml 1,000 ML IV ONE (11:09)
--- NOTE | 2024-12-26 11:13 | RADIOLOGY REPORT ---
CHEST RADIOGRAPH Indication: syncope Technique: Single frontal view of the chest was obtained COMPARISON: None FINDINGS: Lines and Tubes: None Lungs: Clear Pleura: No effusion. No pneumothorax. Cardiomediastinal contours: Unremarkable Bones: Unremarkable IMPRESSION: No acute disease.
[2024-12-26 11:21] LABS: CREATININE 0.48 MG/DL (0.40-0.90); TOTAL CARBON DIOXIDE 24.1 MMOL/L (24-32); eCRCL 135 ML/MIN; eGFR > 90 ML/MIN
[2024-12-26 11:34] LABS: CREATINE KINASE MB 0.6 ng/ml (0.3-3.6); PRO BRAIN NATRIURETIC PEPTIDE 90 PG/ML (0-125)
[2024-12-26 13:16] LABS: LEUKOCYTE ESTERASE ,URINE NEGATIVE (Neg); NITRITES, URINE NEGATIVE (Neg); OCCULT BLOOD,URINE NEGATIVE (Neg)
[2024-12-26 13:21] LABS: URINE HCG NEGATIVE (NEG)
[2024-12-26 13:23] LABS: UA COLLECTION TYPE VOIDED
[2024-12-26 14:39] VITALS: BP 102/64; PULSE 52; RESP 16; O2SAT 98
--- NOTE | 2024-12-26 14:45 | VASCULAR REPORT ---
Carotid duplex REASON FOR EXAM: Dizziness A Carotid Duplex Study was performed. INDICATION: Dizziness TECHNIQUE: Marquis scale, color doppler imaging and spectral analysis were performed. FINDINGS: On marquis scale and color imaging there is plaquing seen in the right carotid bulb and proxi mal right internal carotid artery. There is also minimal plaquing in the proximal left external morgan tid artery Velocities are as follows: (measured in cm/S): Right CCA 107 Left CCA 126 Right ICA 107 Left ICA 90 Right ICA/CCA 1.18 Left ICA/CCA 1.27 Flow in the vertebral arteries is antegrade. IMPRESSION: 1. No hemodynamically significant stenosis based on NASCET criteria 1. There is some calcified plaque seen in the right carotid bulb and proximal right internal carotid artery.
== END 2024-12-26 14:40 | disposition home or self-care (01) ==
LOC: ER 09:43
DX: I95.1 Orthostatic hypotension (principal); R00.0 Tachycardia, unspecified; R42 Dizziness and giddiness; G43.909 Migraine, unspecified, not intractable, without status migrainosus; Z88.5 Allergy status to narcotic agent; Z88.6 Allergy status to analgesic agent; Z79.899 Other long term (current) drug therapy; Z72.89 Other problems related to lifestyle
CPT/HCPCS: 36415; 71045; 80053; 81003; 81025; 82550; 82553; 83735; 83880; 84439; 84443; 84484; 85025; 93005; 93880; 96360; 99285; J7030

== ENCOUNTER 2025-02-16 08:46 | Emergency (ER) | payer SELFPAY ==
[~2025-02-16] VITALS: Ht 157.5 cm; Wt 66.2 kg
[2025-02-16 08:58] VITALS: BP 118/70; PULSE 66; RESP 18; TEMP 97.3; O2SAT 98
--- NOTE | 2025-02-16 09:03 | ELECTROCARDIOGRAPH REPORT ---
[facility] Test Date: 2025-02-16 Test Time: 08:55:35 Pat Name: CLEMENCIA HUANG Department: WILL Room: Gender: F Mail Clerk Bills: : 1990 Requested By: JOAQUÍN DOWELL Order Number: [id number] Reading MD: Measurements Intervals [place] Rate: 67 P: 63 MD: 111 QRS: 60 QRSD: 77 T: 44 QT: 391 QTc: 413 Interpretive Statements Sinus rhythm Borderline short MD interval Please click the below link to view image of tracing.
--- NOTE | 2025-02-16 09:03 | Physician Documentation ---
History of Present Illness ~ Chief Complaint: Chest Pain Stated Complaint: CP Time Seen by MD: 09:04 Primary Medical Doctor: kalani MCQUEEN 34 yr old female with hx of episodic left chest pain and dizziness presents to the ER today due to CP, dizziness, nausea, and vomiting. No fevers. Sees Garcia and has had some recent workup with him that is normal thus far. Medication Reconciliation Allergies: Coded Allergies: codeine (Unverified Allergy, Unknown, hives, 02/16/25) naproxen (Unverified Adverse Reaction, Unknown, 02/16/25) reports causes nausea and vomitting, states she is able to take Ibuprofen tramadol (Unverified Adverse Reaction, Unknown, 02/16/25) Pt reports causes N/V Scheduled Bisacodyl (Dulcolax), 4 TAB PO ONCE Cyclobenzaprine HCl (Cyclobenzaprine HCl), 10 MG PO TID PRN MUSCLE SPASM Diclofenac Sodium (Diclofenac Sodium), 1 TABLET PO BID Famotidine (Pepcid), 1 TAB PO Q12H Fluticasone Propionate (Fluticasone Propionate), 2 SPRAYS BOTHNARES DAILY Hydrocodone/Acetaminophen ([place] 5-325 Tablet), 1 TAB PO Q12H PRN Hydrocodone/Acetaminophen ([place] 5-325 Tablet), 1 TAB PO TID PRN Meclizine HCl (Meclizine HCl), 1 TAB PO TID PRN Methocarbamol (Robaxin), 1 TAB PO Q8H Omeprazole (Omeprazole), 1 TAB PO DAILY Prochlorperazine Maleate (Compazine), 1 TAB PO Q6H Scheduled PRN Cyclobenzaprine* (Cyclobenzaprine*), 1 TABLET PO Q8H PRN for muscle spasms Hydrocodone Bit/Acetaminophen 5/325 MG ([place] 5/325 MG), 1-2 TAB PO Q4-6 hours PRN for pain Ondansetron 8mg ODT (Ondansetron Odt), 1 TAB PO TID PRN for nausea/vomiting Miscellaneous Medications [ vitamins], (Reported) Past Medical History Past Medical History: Headache, Migraine, *RENAL/*, Chronic Back Pain Past Surgical History: Alcohol Use: Occasionally Drug Use: none Lives with: Spouse Lives In: Home Occupation: employed Review of Systems ROS As stated above in the HPI, otherwise all systems are reviewed and negative. Physical Exam Vital Signs: Temperature: 97.3, Source: Temporal, Heart Rate: 66, Respiratory Rate: 18, BP: 118/70, Pulse Oximetry: 98, Weight: 66.200 Oxygen Flow Rate: 0 Physical Exam General: Alert, appears anxious. Neck: Full range of motion. Respiratory: Lungs clear, no respiratory distress. Chest: No accessory muscle use. Cardiovascular: Regular rate and rhythm, no murmurs. Gastrointestinal: Soft, nontender, nondistended. Bowels sounds present. Extremities: Normal range of motion, no deformity. Neurologic: Oriented x4. Psychiatric: Normal mood and affect. Skin: Normal color, warm and dry. No edema, no ecchymosis. Progress Results/Orders Results/Orders Completed Orders - BATOOL PRATER NP Ondansetron Disint. Tablet (Zofran Odt T (02/16/25 09:05) Medications Received in ER Medications (Trade) Dose Ordered Sig/Kaushik Route PRN Reason Start Time Stop Time Status Last Admin Dose Admin (Zofran ODT tablet) 4 mg ONCE ONCE PO 02/16/25 09:05 02/16/25 09:06 DC 02/16/25 09:37 4 MG Vital Signs 02/16/25 08:58 Temp 97.3 Pulse 66 Resp 18 B/P (MAP) 118/70 Pulse Ox 98 O2 Flow Rate 0 Laboratory Tests Test 02/16/25 08:52 White Blood Count 4.5 Red Blood Count 4.57 Hemoglobin 14.4 Hematocrit 41.8 Mean Corpuscular Volume 91.5 Mean Corpuscular Hemoglobin 31.6 H Mean Corpuscular Hemoglobin Concent 34.5 Red Cell Distribution Width 12.5 Platelet Count 229 Mean Platelet Volume 9.4 Neutrophils (%) (Auto) 54.8 Lymphocytes (%) (Auto) 34.8 Monocytes (%) (Auto) 8.3 Eosinophils (%) (Auto) 1.3 Basophils (%) (Auto) 0.8 Neutrophils # (Auto) 2.5 Lymphocytes # (Auto) 1.6 Monocytes # (Auto) 0.4 Eosinophils # (Auto) 0.1 Basophils # (Auto) 0.0 CBC Comment Sodium Level 141 Potassium Level 4.0 Chloride Level 109 H Carbon Dioxide Level 23.9 L Anion Gap 8 Blood Urea Nitrogen 9 Creatinine 0.78 Estimated GFR/1.73 m2 84 BUN/Creatinine Ratio 11.5 Glucose Level 94 Calcium Level 9.0 Troponin I High Sensitivity 15 Pro-B-Type Natriuretic Peptide 121 Albumin 3.7 Lipase 49 Chemistry Comments EKG/XRAY/CT/US/VASC/MRI EKG : Additional Comment EKG was obtained per protocol and interpreted by Dr. Adryan Keller. It sh ows sinus rhythm of 67, normal [place] interval, narrow QRS, no QT prolongation, normal axis, no STEMI. Chest X-Ray : Additional Comments [facility] [address] [facility] [address] DIAGNOSTIC RADIOLOGY Patient: CLEMENCIA HUANG Medical Record: [id number] [facility] : 1990, Age: 34 Sex: Female Location: ER Patient Status: [facility] ER Service Date/Time: 02/16/25908 Ordering Physician: ADRYAN KELLER DO Exam: CHEST,SINGLE VIEW CHEST RADIOGRAPH Indication: CP Technique: Single frontal view of the chest was obtained COMPARISON: DI CHEST,SINGLE VIEW on DOS: 12/26/24 FINDINGS: Lines and Tubes: None Lungs: Clear Pleura: No effusion. No pneumothorax. Cardiomediastinal contours: Unremarkable Bones: Unremarkable IMPRESSION: No acute disease. Electronically Signed by:JORDAN GONZALEZ MD Date & Time: 02/16/25920 Dictated by: JORDAN GONZALEZ MD Dictation date and time: 02/16/25920 Primary Care Provider: NO PRIMARY CARE PROVIDER cc: ADRYAN KELLER DO ~ Medical Decision Making Differential Dx:Considerations: Include: angina, aortic dissection, chest wall pain, cholelithiasis, CHF, costochondritis, esophageal reflux/spasm, gastritis, herpes zoster, myocardial infarction, pericarditis, pleuritis, pancreatitis, pneumonia, pneumothorax, pulmonary embolus Additional Information Suspect gastritis versus GERD versus ulcer. Will treat with PPI x one month and provide prn ondansetron. Normal CXR, troponin, lipase and all other blood work. No concerning findings on physical exam or workup. Is to f/u with cardiac care provider. Departure Time of Disposition: 11:30 Disposition: HOME / SELF CARE / HOMELESS Impression: Primary Impression: Chest pain Condition: Stable Discharge Instructions: Chest Wall Pain, Nonspecific Chest Pain, Adult Additional Instructions: All of your labs were normal including lipase and troponin. Your EKG was normal. Your Chest xray was normal. Your symptoms do not represent a cardiac issue. Start the prescribed medication to presumptively treat for gastritis. Use the prescribed ondansetron as needed for nausea. Followup with Dr. Garcia. Return for any emergent issues. Referrals: NO PRIMARY CARE PROVIDER (PCP) Prescriptions Ondansetron 8mg ODT (Ondansetron Odt) 8 Mg Tab.rapdis 1 TAB PO TID PRN for nausea/vomiting, #10 TAB Prov: BATOOL PRATER NP 02/16/25 Omeprazole (Omeprazole) 20 Mg Tab.rap.dr 1 TAB PO DAILY for 30 Days, #30 TAB 0 Refills Prov: BATOOL PRATER NP 02/16/25 Education Educated: Patient Educated regarding: diagnosis, treatment, prognosis, need for follow up Signature Scribe Signature: x Attestation: The note accurately reflects work and decisions made by me.Batool Ochoa NP 02/16/25 09:03 BATOOL PRATER NP Feb 16, 2025 09:03 ADRYAN KELLER DO Feb 16, 2025 09:15
--- NOTE | 2025-02-16 09:23 | RADIOLOGY REPORT ---
CHEST RADIOGRAPH Indication: CP Technique: Single frontal view of the chest was obtained COMPARISON: DI CHEST,SINGLE VIEW on DOS: 12/26/24 FINDINGS: Lines and Tubes: None Lungs: Clear Pleura: No effusion. No pneumothorax. Cardiomediastinal contours: Unremarkable Bones: Unremarkable IMPRESSION: No acute disease.
[2025-02-16 09:26] LABS: MEAN PLATELET VOLUME 9.4 FL (7.4-10.4); RED CELL DISTRIBUTION WIDTH 12.5 % (11.5-14.5)
[2025-02-16] MEDS: ondansetron 4mg rapidly disintigrating tab PO ONE (09:37)
[2025-02-16 09:51] LABS: CREATININE 0.78 MG/DL (0.40-0.90); PRO BRAIN NATRIURETIC PEPTIDE 121 PG/ML (0-125); TOTAL CARBON DIOXIDE 23.9 MMOL/L (24-32); eCRCL 80 ML/MIN; eGFR 84 ML/MIN
[2025-02-16] MEDS ORDERED: ONDA-245 PO (11:33)
[2025-02-16] MEDS ORDERED: OMEP-419 PO (11:33)
== END 2025-02-16 11:53 | disposition home or self-care (01) ==
LOC: ER 08:46
DX: R07.89 Other chest pain (principal); G89.29 Other chronic pain; G43.909 Migraine, unspecified, not intractable, without status migrainosus; Z88.5 Allergy status to narcotic agent; Z79.899 Other long term (current) drug therapy
CPT/HCPCS: 36415; 71045; 80048; 83690; 83880; 84484; 85025; 93005; 99285